=== PATIENT | female | born 1965 ===

== ENCOUNTER 2021-08-28 06:18 | Outpatient (REF) | payer OTHER, SELFPAY ==
[2021-08-28 13:20] LABS: Anion Gap 11 (12-20); Carbon Dioxide 25 mmol/L (22-29); Chloride 109 mmol/L (96-108); Cholesterol 226 mg/dL; Estimated Glomerular Filt Rate > 60; Glucose Fasting 96 mg/dL (60-99); HDL Cholesterol 44 mg/dL; LDL Cholesterol Calculated 168 mg/dl; Potassium 4.3 mmol/L (3.3-5.1); Sodium 141 mmol/L (135-145); Triglycerides 72 mg/dL
[2021-08-28 15:32] LABS: Blood Urea Nitrogen 20 mg/dL (9-16); Calcium 9.8 mg/dL (8.4-10.2)
== END 2021-08-28 06:19 | disposition home or self-care (01) ==
LOC: HO.HMGCLDS 06:18
PROVIDERS: Visit Provider Internal Medicine
DX: E78.5 Hyperlipidemia, unspecified (principal); I10 Essential (primary) hypertension
CPT/HCPCS: 36415; 80048; 80061

== ENCOUNTER 2022-03-06 07:08 | Outpatient (REF) | payer OTHER, SELFPAY ==
[2022-03-06 11:54] LABS: Alanine Aminotransferase 12 U/L (0-31); Anion Gap 15 (12-20); Aspartate Amino Transferase 14 U/L (5-31); Blood Urea Nitrogen 15 mg/dL (9-16); Calcium 9.7 mg/dL (8.4-10.2); Carbon Dioxide 26 mmol/L (22-29); Chloride 107 mmol/L (96-108); Cholesterol 229 mg/dL; Estimated Glomerular Filt Rate > 60; Glucose Fasting 99 mg/dL (60-99); HDL Cholesterol 52 mg/dL; LDL Cholesterol Calculated 162 mg/dl; Potassium 4.6 mmol/L (3.3-5.1); Sodium 143 mmol/L (135-145); Triglycerides 77 mg/dL
[2022-03-06 11:58] LABS: Vitamin D 25-OH Total 21.5 ng/mL (>30)
== END 2022-03-06 07:09 | disposition home or self-care (01) ==
LOC: HO.HMGCLDS 07:08
PROVIDERS: PCP Internal Medicine; Visit Provider Internal Medicine
DX: Z00.00 Encounter for general adult medical examination without abnormal findings (principal); E78.5 Hyperlipidemia, unspecified; Z78.0 Asymptomatic menopausal state
CPT/HCPCS: 36415; 80048; 80061; 82306; 84450; 84460

== ENCOUNTER 2022-09-10 08:31 | Outpatient (REF) | payer OTHER, SELFPAY ==
[2022-09-10 11:46] LABS: Alanine Aminotransferase 14 U/L (0-31); Aspartate Amino Transferase 15 U/L (5-31); Cholesterol 223 mg/dL; HDL Cholesterol 58 mg/dL; LDL Cholesterol Calculated 154 mg/dl; Triglycerides 58 mg/dL
[2022-09-10 12:17] LABS: Vitamin D 25-OH Total 40.8 ng/mL (>30)
== END 2022-09-10 08:32 | disposition home or self-care (01) ==
LOC: HO.HMGCLDS 08:31
PROVIDERS: PCP Internal Medicine; Visit Provider Internal Medicine
DX: E78.5 Hyperlipidemia, unspecified (principal); E55.9 Vitamin D deficiency, unspecified
CPT/HCPCS: 36415; 80061; 82306; 82550; 84450; 84460

== ENCOUNTER 2022-11-25 14:50 | Outpatient (REF) | payer OTHER, SELFPAY | END 2022-11-25 14:51 | disposition home or self-care (01) | LOC: HO.LAB 14:50 | PROVIDERS: Visit Provider Internal Medicine | DX: N39.0 Urinary tract infection, site not specified (principal) | CPT/HCPCS: 87086; 87088; 87186 ==

== ENCOUNTER 2022-12-24 13:40 | Outpatient (AMB) | payer OTHER, SELFPAY ==
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
[2022-12-24 14:21] VITALS: BP 144/80; PULSE 63; BMI 27.9
== END 2022-12-24 14:55 | disposition home or self-care (01) ==
LOC: HO.HMGC 13:40
PROVIDERS: PCP Internal Medicine; Visit Provider Internal Medicine
DX: M54.41 Lumbago with sciatica, right side (principal)
CPT/HCPCS: 99213

== ENCOUNTER 2023-01-22 07:35 | Outpatient (REF) | payer OTHER, SELFPAY ==
[2023-01-22 12:00] LABS: Alanine Aminotransferase 14 U/L (0-31); Aspartate Amino Transferase 14 U/L (5-31); Cholesterol 171 mg/dL; HDL Cholesterol 58 mg/dL; LDL Cholesterol Calculated 99 mg/dl; Triglycerides 73 mg/dL
== END 2023-01-22 07:36 | disposition home or self-care (01) ==
LOC: HO.HMGCLDS 07:35
PROVIDERS: PCP Internal Medicine; Visit Provider Internal Medicine
DX: E78.5 Hyperlipidemia, unspecified (principal)
CPT/HCPCS: 36415; 80061; 82550; 84450; 84460

== ENCOUNTER 2023-02-24 09:00 | Outpatient (AMB) | payer OTHER, SELFPAY ==
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
[2023-02-24 09:07] VITALS: BP 126/78; PULSE 92; O2SAT 100; BMI 27.6
== END 2023-02-24 09:59 | disposition home or self-care (01) ==
PROVIDERS: PCP Internal Medicine; Visit Provider Internal Medicine
DX: M54.41 Lumbago with sciatica, right side (principal); E78.5 Hyperlipidemia, unspecified; I10 Essential (primary) hypertension; M51.36 Other intervertebral disc degeneration, lumbar region
CPT/HCPCS: 99214

== ENCOUNTER 2023-04-22 16:00 | Outpatient (RCR) | payer OTHER, SELFPAY ==
--- NOTE | 2023-01-22 09:49 | MHC.PT.EP ---
[facility] [place] Office [place] Office [place] Office [address] Maurice Sosa [address] [phone] F: [phone] F: [phone] F: [phone] F: [phone] Physical Therapy Plan of Care Date of Evaluation: Date of Surgery: Diagnosis: This is a 57 yo female presenting to skilled PT with a script for lumbago with sciatica, R side. Assessment: This is a 57 yo female presenting to skilled PT with a script for lumbago with sciatica, R side. Patient is here today reporting that she was walking and felt a pull across her back, this occurred about 2 months ago. Since then she reports her pain got a little better but then she tried walking again and it pulled once more (overall pain has been consistent for 2 months). Pain is located at the R side low back, radiates into the lateral hip as well down the posterior aspect of the leg into the thigh (usually with driving). Pain is constant 3-10/10. Pain is described as sharp, stabbing and occasionally tinging into the thigh when driving. She has tried a massage which did not relieve her pain, a heating pad and Tylenol/ibuprofen which provides some relief and past exercises from PT a few years ago (which have helped some). Of note she was also seen for a UTI and was referred for back pain at this visit about a month ago. Assessment reveals pain that ranges from a 3-10/10. Patient demos decreased lumbar and hip ROM, strength of core, back and LE's. She is TTP at lumbar paraspinals, piri, ITB, glut and QL. She is + for MIKEY, sacral squish, anterior rotation on RLE, LLD (long on R), seated SLR and TTP with palpation at PSIS on R. Based on functional limitations, impaired QOL and pain tolerance patient is a good candidate for skilled PT 2x/wk for 4wks. 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 Manual therapy to restore motion and function. Therapeutic exercise to improve strength and flexibility. Neuromuscular re-education for posture and balance. Therapeutic activities to return to functional activities of daily living. Electronically signed by: Rina Newman PT Please sign and return to therapist. Thank you for your referral.
--- NOTE | 2023-04-23 13:30 | MHC.PT.DC ---
[facility] [place] Office [place] Office [place] Office [address] Maurice Sosa [address] [phone] F: [phone] F: [phone] F: [phone] F: [phone] Physical Therapy Discharge Report Diagnosis: This is a 57 yo female presenting to skilled PT with a script for lumbago with sciatica, R side. Date of Surgery: Date of Evaluation: 01/22/23 Date of Discharge: 04/23/23 Treatments to Date: 19 Cancellations to Date: 0 No Shows to Date: Discharge Status: Achieved Goals Improved Function Independent with HEP Discharge Summary: Pt with 2 more appointments and then DC. She has HEP to continue on her own and she was educated on safety with her back pack (came in today with a very heavy bag hung on one shoulder) and safety with hobbies. Good ROM noted, however continues to be weak in hips. HEP distributed and DC'd to I management with education to follow up with PCP as needed. Electronically signed by: Rina Newman PT Please sign and return to therapist. Thank you for your referral.
== END 2023-04-23 13:31 | disposition home or self-care (01) ==
LOC: HO.PTCHIC 16:00
PROVIDERS: PCP Internal Medicine; Visit Provider Internal Medicine
DX: M54.41 Lumbago with sciatica, right side (principal)
CPT/HCPCS: 97110; 97140; 97162

== ENCOUNTER 2023-11-27 13:48 | Outpatient (AMB) | payer OTHER, SELFPAY ==
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
== END 2023-11-27 14:35 | disposition home or self-care (01) ==
PROVIDERS: PCP Internal Medicine; Referring Provider Student in an Organized Health Care Education/Training Program; Visit Provider Neurological Surgery
DX: M54.41 Lumbago with sciatica, right side (principal); G89.29 Other chronic pain; M51.36 Other intervertebral disc degeneration, lumbar region
CPT/HCPCS: 99204

== ENCOUNTER → 2023-11-27 13:48 | Outpatient (BNVA) | payer OTHER, SELFPAY | PROVIDERS: PCP Internal Medicine; Visit Provider Neurological Surgery ==

== ENCOUNTER 2023-12-21 07:49 | Outpatient (REF) | payer OTHER, SELFPAY ==
[2023-12-21 10:19] LABS: MANUAL DIFF FLAG NO
[2023-12-21 10:37] LABS: Basophils Percent Auto 0.2 % (0-2); Eosinophils Absolute Auto 0.2 X10*3/uL (0.0-0.4); Eosinophils Percent Auto 3.9 % (0-4); Hematocrit 45.2 % (37.0-47.0); Hemoglobin 15.2 g/dl (12.0-16.0); Imm Gran Abs Auto 0.02 X10*3/uL (0.00-0.03); Imm Gran Pct Auto 0.4 % (0.0-0.4); Lymphocytes Absolute Auto 1.6 X10*3/uL (1.2-4.9); Lymphocytes Percent Auto 31.6 % (20-40); Mean Corpuscular HGB Conc 33.6 g/dl (31.0-35.0); Mean Corpuscular Hemoglobin 29.6 pg (27.0-33.0); Mean Corpuscular Volume 87.9 fL (80.0-98.0); Monocytes Absolute Auto 0.4 X10*3/uL (0.1-1.2); Monocytes Percent Auto 8.6 % (2-11); Neutrophils Absolute Auto 2.8 x10*3/uL (2.0-8.3); Neutrophils Percent Auto 55.3 % (45-73); Platelet Count 216 X10*3/uL (160-400); Red Blood Count 5.14 X10*6/uL (4.20-5.50); Red Cell Distribution Width 13.1 % (11.0-16.0); White Blood Count 5.1 X10*3/uL (4.8-10.8)
[2023-12-21 11:16] LABS: Alanine Aminotransferase 16 U/L (0-31); Anion Gap 13 (12-20); Aspartate Amino Transferase 17 U/L (5-31); Blood Urea Nitrogen 19 mg/dL (9-16); Calcium 10.2 mg/dL (8.4-10.2); Carbon Dioxide 23 mmol/L (22-29); Chloride 108 mmol/L (96-108); Cholesterol 190 mg/dL (<200); Estimated Glomerular Filt Rate > 60; Glucose Fasting 98 mg/dL (60-99); HDL Cholesterol 57 mg/dL (>40); LDL Cholesterol Calculated 119 mg/dL (<100); Potassium 4.2 mmol/L (3.3-5.1); Sodium 140 mmol/L (135-145); Triglycerides 71 mg/dL (<150)
[2023-12-21 11:17] LABS: Vitamin D 25-OH Total 28.6 ng/mL (>30)
== END 2023-12-21 07:50 | disposition home or self-care (01) ==
LOC: HO.HMGCLDS 07:49
PROVIDERS: PCP Internal Medicine; Visit Provider Internal Medicine
DX: M54.41 Lumbago with sciatica, right side (principal); E78.5 Hyperlipidemia, unspecified; I10 Essential (primary) hypertension
CPT/HCPCS: 36415; 80048; 80061; 82306; 84450; 84460; 85025

== ENCOUNTER 2024-05-25 09:05 | Outpatient (AMB) | payer OTHER, SELFPAY ==
[2024-05-25 09:08] VITALS: BP 142/82; PULSE 92; O2SAT 99; BMI 31.5
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
== END 2024-05-25 10:25 | disposition home or self-care (01) ==
LOC: HO.HMCC 09:06
PROVIDERS: PCP Internal Medicine; Visit Provider Nurse Practitioner Family
DX: Z00.00 Encounter for general adult medical examination without abnormal findings (principal); E78.5 Hyperlipidemia, unspecified; I10 Essential (primary) hypertension; R05.1 Acute cough; R06.2 Wheezing

== ENCOUNTER 2024-05-25 09:05 | Outpatient (REF) | payer OTHER, SELFPAY ==
--- NOTE | ~2024-05-25 | XR_ITS ---
EXAMINATION: XR CHEST CLINICAL INFORMATION: Cough unspecified COMPARISON: None available. TECHNIQUE: 2 views of the chest were obtained. FINDINGS: There is a minor linear infiltrate at the left base suspicious for pneumonia. Right lung clear. Heart and pulmonary vessels normal. XR/XR chest 2V IMPRESSION: Left basilar infiltrate suspicious for pneumonia. Electronically signed by: Ishaan Valenzuela MD 05/25/2024 04:50 PM EST
== END 2024-05-25 09:06 | disposition home or self-care (01) ==
LOC: HO.HMGCX 09:05
PROVIDERS: PCP Internal Medicine; Visit Provider Nurse Practitioner Family
DX: R05.9 Cough, unspecified (principal); R06.2 Wheezing
CPT/HCPCS: 71046; 96127

== ENCOUNTER 2024-06-03 08:11 | Outpatient (AMB) | payer OTHER, SELFPAY ==
[2024-06-03 08:19] VITALS: BP 132/80; PULSE 74; TEMP 36.4; O2SAT 98; BMI 31.5
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
== END 2024-06-03 08:53 | disposition home or self-care (01) ==
PROVIDERS: PCP Internal Medicine; Visit Provider Nurse Practitioner Family
DX: J15.9 Unspecified bacterial pneumonia (principal)

== ENCOUNTER 2024-06-06 08:58 | Outpatient (AMB) | payer OTHER, SELFPAY ==
--- NOTE | 2024-06-06 09:01 | A.SPINEOV_ITS ---
Intake Visit Reasons: Left sided pain Intake Note: Ms. Godinez is here today c/o Left sided back pain. 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 Allergies penicillin V Allergy (Unknown, Verified 06/03/24 08:21) hives, swelling aspirin Adverse Reaction (Unknown, Verified 06/03/24 08:21) severe nose bleeds azithromycin Adverse Reaction (Unknown, Verified 06/03/24 08:21) stomach cramps tizanidine Adverse Reaction (Unknown, Verified 06/03/24 08:21) johnny horses Eggs Adverse Reaction (Unknown, Uncoded 02/24/23 09:45) stomach cramps, deathly ill Assessment & Plan Assessment & Plan (1) Lumbar radiculopathy: Code(s): M54.16 - Radiculopathy, lumbar region Category: Medical Plan Today I saw Kye for a follow-up visit after she called the clinic last week stating that her right-sided lumbar radiculopathy at resolved. To recap she is currently booked for right L4-5 lumbar microdiskectomy. She does still report some right-sided axial back pain, but the shooting severe pain down her right lower extremity has resolved. Of note she recently had a bout of pneumonia and was on antibiotics and a course of steroids. Instead she is having pains down her left lower extremity. When describing her pain she states that it starts in her low back and shoots down her posterior buttocks into the left posterior thigh terminating before the knee. She also has some positional symptoms; she states that when lying down flat in bed with pillows under her legs her left foot feels numb and has a tingling sensation. On examination she has 5/5 strength in her bilateral lower extremities. Her reflexes are 2+ intact in her lower extremities. (-) bilateral straight leg raise. I informed gene that I do not believe we should proceed with her right-sided microdiskectomy surgery given that her clinical presentation and history are most consistent with a disc resorption or degeneration of extruded segment. She was very concerned that we will be cancelling her surgery, and was looking forward to relief of her pain/symptoms. I spent quite some time explaining to the patient that the last thing we want to do as a surgical service is to operate on the patient have them not get better. Instead, I would like her to follow up with Dr. Pennings who initially evaluated her in clinic and stated that she was asymptomatic for left-sided S1 nerve impingement. I feel as though she may either now be symptomatic at this level or is only now realizing it that her severe right-sided shooting radiculopathy has subsided. Although frustrated, the patient understands and agrees to this plan. She will follow up with Dr. Garza in clinic. Bladimir Garza MD,PhD [facility] Coding Level of Care Code Est Pt Level 3 (92002) Diagnoses Lumbar radiculopathy M54.16
== END 2024-06-06 09:28 | disposition home or self-care (01) ==
PROVIDERS: PCP Internal Medicine; Visit Provider Physician Assistant
DX: M54.16 Radiculopathy, lumbar region (principal)
CPT/HCPCS: 99213

== ENCOUNTER 2024-06-22 13:51 | Outpatient (AMB) | payer OTHER, SELFPAY ==
--- NOTE | 2024-06-22 14:52 | HO.SPINEOV ---
Intake Visit Reasons: Discuss sx Intake Note: Ms. 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 Required: No Allergies penicillin V Allergy (Unknown, Verified 06/22/24 14:52) hives, swelling aspirin Adverse Reaction (Unknown, Verified 06/22/24 14:52) severe nose bleeds azithromycin Adverse Reaction (Unknown, Verified 06/22/24 14:52) stomach cramps tizanidine Adverse Reaction (Unknown, Verified 06/22/24 14:52) johnny horses Eggs Adverse Reaction (Unknown, Uncoded 02/24/23 09:45) stomach cramps, deathly ill Assessment & Plan Assessment & Plan (1) Lumbago with sciatica, right side: Code(s): M54.41 - Lumbago with sciatica, right side Category: Medical Qualifiers: Chronicity: chronic Back pain laterality: right Qualified Code(s): M54.41 - Lumbago with sciatica, right side; G89.29 - Other chronic pain Plan Dear colleague, On 06/22/2024, I saw for follow-up Kye Godinez. She was originally scheduled to undergo a lumbar microdiskectomy L4-5, right side on 06/23/2024(tomorrow). However, she developed pneumonia with severe episodes of coughing that produced severe pain on the left side of her back and buttock. The pneumonia has resolved in the meantime but the symptoms persist on top of the original right-sided back pain that radiates into her buttock and sometimes to the outside of her hip. We both agree that it is better to repeat an MRI of the lumbar spine to make sure that no new pathology has developed that can explain the left-sided symptoms. Therefore, I will order a stat MRI of the lumbar spine at [place]. If this does not show any new insights then we will put her back on the schedule for a right L4-5 lumbar microdiskectomy. Apparently, our anesthesia told the patient that she need to see her PCP due to the previous pneumonia. This is pure defensive medicine without any merit. This patient is completely recovered from her pneumonia has no signs of dyspnea. Auscultation today in the office showed clear lungs. Therefore, she will not have to be seen by her primary care physician before surgery again. I spent 15 minutes in his consult today for history physical exam and discussing plan of care. Thank you for allowing me take care of this patient. Octavio Garza MD, PhD Spine Fellowship Trained Neurosurgeon Director, [facility] Orders: Orders MR lumbar spine wo con Today G89.29 - Other chronic pain, M54.16 - Radiculopathy, lumbar region, M54.41 - Lumbago with sciatica, right side Coding Level of Care Code Est Pt Level 2 (10133) Diagnoses Chronic right-sided low back pain with right-sided sciatica M54.41; G89.29 Chronicity: chronic Back pain laterality: right
--- OUTSIDE RECORDS SUMMARY | 2024-06-28 20:00 | XMS_ITS | Continuity of Care Document ---
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 Name Role Phone Janet CAMARGO, Didi Almanza Primary Care Physician Encounter 06/25/24 - 06/26/[address] [address]- us Attending Physician: Not on Staff, Attending MD Referring Physician: Not on Staff, Referring MD Encounter Type: [facility] Allergies, Adverse Reactions, Alerts Substance Criticality Severity Reaction Reaction Severity Status erythromycin VOMITING Active aspirin SEVERE NOSE BLEEDS A ctive penicillins HIVES Active Egg Allergy SEVERE STOMACH PAIN Active Patient Care team information Care Team Personnel Name: Janet CAMARGO , Didi Almanza Position: Reference Physician Member Role: PCP Address: [address] [place], [place] [address] Telecom: Name: Parent Jyotsna VALENTINO Position: [facility] Proteomics Scientist Member Role: Primary Care Nurse Insurance Providers Guarantor name: WANDER CRESPO Health Plan Information #: 1 Payer: [facility] HMO Member Number: NA Policy Number: NA Group Number: NA
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
== END 2024-06-22 15:40 | disposition home or self-care (01) ==
PROVIDERS: PCP Internal Medicine; Visit Provider Neurological Surgery
DX: M54.41 Lumbago with sciatica, right side (principal); G89.29 Other chronic pain
CPT/HCPCS: 99212

== ENCOUNTER 2024-06-29 15:18 | Outpatient (AMB) | payer OTHER, SELFPAY ==
--- NOTE | 2024-06-29 15:22 | A.SPINEOV_ITS ---
Intake Visit Reasons: F/u MRI Intake Note: Mrs. Godinez is here today to F/u on her MRI Non Licensed Nuclear Equipment Operator Required: No Allergies penicillin V Allergy (Unknown, Verified 06/22/24 14:52) hives, swelling aspirin Adverse Reaction (Unknown, Verified 06/22/24 14:52) severe nose bleeds azithromycin Adverse Reaction (Unknown, Verified 06/22/24 14:52) stomach cramps tizanidine Adverse Reaction (Unknown, Verified 06/22/24 14:52) johnny horses Eggs Adverse Reaction (Unknown, Uncoded 02/24/23 09:45) stomach cramps, deathly ill Assessment & Plan Assessment & Plan (1) Lumbar degenerative disc disease: Code(s): M51.36 - Other intervertebral disc degeneration, lumbar region Category: Medical Plan Dear colleague, On 05/2024 saw Kye Godinez in follow-up to review the MRI of the lumbar spine. As you know she suffering from right-sided back and buttock pain but developed additional left-sided sciatica into her buttock after pneumonia with severe coughing. The new MRI indeed shows an aggravation of the L5-S1 area with more disc extrusion compressing the S1 nerve root. There is still compression of the right L5 nerve root and an old L3-4 disc herniation compressing the left L4 nerve root. The patient does have stable numbness over left thigh without pain which is caused by the L3-4 disc herniation. I told the patient that removal of the disc herniation will not improve the numbness. I decided to offer her a right L4-5 microdiskectomy but also a left L5-S1 microdiskectomy to decompress the right L5 nerve root and left S1 nerve. I spent 25 minutes in his consult to review imaging with the patient and her and to discuss the procedure. Octavio Garza MD, PhD Spine Fellowship Trained Neurosurgeon Director, [facility] Coding Level of Care Code Est Pt Level 3 (20340) Diagnoses Lumbar degenerative disc disease M51.36
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
== END 2024-06-29 16:24 | disposition home or self-care (01) ==
PROVIDERS: PCP Internal Medicine; Visit Provider Neurological Surgery
DX: M51.369 Other intervertebral disc degeneration, lumbar region without mention of lumbar back pain or lower extremity pain (principal)
CPT/HCPCS: 99213

== ENCOUNTER → 2024-06-30 09:55 | Day surgery (SDC) | payer OTHER, SELFPAY ==
[2024-06-30] VITALS (13 sets, daily range): BP systolic 116–158; BP diastolic 52–75; PULSE 49–68; RESP 12–18; TEMP 36.1–37.3; O2SAT 96–100; BMI 30.7
--- NOTE | 2024-06-30 11:37 | MHC.SHP ---
Pre-Procedural Eval Section A - 24 Hr Update-Section A only Date of Service: 06/30/24 The patient is an INPATIENT: No Section B - Complete if H&P > 30 days Chief Complaint: Lumbago with sciatica, right side,sciatica Details of Present Illness: Bilateral radiculopathy Allergies: Allergies Allergy/AdvReac Type Severity Reaction Status Date / Time penicillin V Allergy Unknown hives, Verified 06/30/24 10:24 swelling aspirin AdvReac Unknown severe Verified 06/30/24 10:24 nose bleeds azithromycin AdvReac Unknown stomach Verified 06/30/24 10:24 cramps tizanidine AdvReac Unknown johnny Verified 06/30/24 10:24 horses Eggs AdvReac Unknown stomach Uncoded 06/30/24 10:24 cramps, deathly ill Review of Systems Sugical H&P ROS: Negative: Constitution, Cardiovascular, Respiratory, Neurological, Psychiatric, Hem-Onc, Allergic/Immunologic, Gastrointestinal, Genitourinary, Musculoskeletal, Integumentary, Endocrine and Eyes/Ears/Nose/Throat Exam Surgical H&P Exam: Normal: HEENT, Normal: Heart, Normal: Lungs, Normal: Extremities, Normal: Abdomen, Normal: Skin and Normal: Neurological (awake, alert) Plan Diagnosis/Plan: Unchanged I have reviewed the history and physical and performed a pertinent physical examination on my patient. No changes have occurred unless specified. Left L5-S1 microdiscectomy and right L4-5 microdiscetomy Time Spent With Patient Time: Total time managing care of this patient today ____ minutes.
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
[2024-06-30] MEDS: Gabapentin 300 MG CAPSULE PO (12:43)
[2024-06-30] MEDS: methocarbamoL 750 MG TABLET PO (12:43)
--- NOTE | 2024-06-30 14:09 | W.PM.OPN ---
Operative Note Operative Note Date of Service: 06/30/24 Narrative: Preoperative diagnosis: Bilateral lumbar radiculopathy due to disc herniation at L5-S1 and L4-5 Postoperative diagnosis: Same Procedure: Left L5-S1 microdiskectomy; right L4-5 microdiskectomy with microscope Surgeon: Octavio Garza MD, PhD Unmanned Equipment Operator: SHASHANK Francisco This patient is suffering from bilateral sciatica with right-sided back pain radiating to her buttock and left-sided back pain radiating to her buttock. Initially she presented with a right-sided symptoms and she was scheduled to undergo an L4-5 microdiskectomy. She developed pneumonia with significant coughing. She developed left sciatica as well. A new MRI showed indeed a large left L5-S1 disc herniation that is increased compared to the old MRI. We decided to add a left L5 S upon microdiskectomy to the right L4-5 microdiskectomy. The procedure complications were explained. The patient was consented. The patient was brought to the operating room and endotracheally intubated. The patient was turned in a prone position on the Blanco frame. Prepping and draping was done followed by time-out. A mid lumbar incision was made followed by release of the paravertebral muscles on the left side side to expose the L5-S1 interspace. An intraoperative x-rays obtained to confirm the correct level. The microscope was brought in. A left L5 laminotomy was done followed by opening of the flavum ligament. The S1 nerve root was identified and retracted medially to expose the L5-S1 disc space and immediately a fragment of disc herniation presented itself and was removed. I inspected the remainder of the L5-S1 disc and was able to retrieve another large fragment medial from the S1 nerve root.This resulted in an excellent decompression of the S1 nerve root. Then attention was turned to the contralateral side. The muscles were released to expose L4-5 interspace. X-ray confirmed the correct level. A right L4 laminotomy was done followed by opening of the flavum ligament. The L5 nerve root was identified and followed always trajectory. I could palpate a small bulge but no clear herniated disc was found. However, the L5 nerve root was decompressed after I performed a minimal partial facetectomy. Hemostasis was done. The microscope was removed. Marcaine was injected intramuscularly.The incision was closed in two layers. Steri-Strips used to approximate the incision. An op-site were taken there was used to cover the incision. All sponge and needle counts were correct. Patient was extubated and transported in stable condition to recovery room. this procedure was done with the aid of a physician therapy assistant who performed the initial exposure until the microscope was brought in and performed the closure of the incision. Anesthesia: General Blood loss: 20 ml Complications: None Specimen: None Surgical time: 60 minutes Disposition: Discharge home
--- NOTE | 2024-06-30 14:25 | P.DS_ITS ---
DS: Providers Provider Date of Service: 06/30/24 Primary care physician: Didi Gonzales MD DS: Summary Time Attestation Discharge Coordination Time (in mins): 15 Quality: Safe Use of Opioids Does Pt have an Active Cancer Diagnosis on the Problem List?: No Quality: Stroke Does the patient have a stroke diagnosis?: No Physical Exam Vital Signs: Vital Signs: Last Vital Signs Temp 99.2 F 06/30/24 10:50 Pulse 68 06/30/24 10:50 Resp 16 06/30/24 10:50 BP 158/63 H 06/30/24 10:50 Pulse Ox 98 06/30/24 10:50 O2 Del Method Room Air 06/30/24 10:50 BMI result Body Mass Index 30.7 Discharge Plan Discharge Patient Disposition: Home, Self-Care Referrals: Didi Gonzales MD [Primary Care Provider] - 1 Week Discharge Medications: New oxycodone 5 mg tablet 5 mg PO Q6H PRN (Reason: severe pain (scale score 7-10)) Qty: 30 0RF Rx Instructions: Partial Fill upon patient request. Continued losartan 50 mg tablet 50 mg PO DAILY Qty: 90 1RF valacyclovir 1 gram tablet 2,000 mg PO Q12H PRN (Reason: Recurrent cold sore) 1 Days Qty: 4 4RF rosuvastatin 5 mg tablet 5 mg PO 3XW Mirena 20 mcg/24 hours (7 yrs) 52 mg intrauterine device intrauterine Discharge Orders: Discharge Order (Routine); Ordered 06/30/24 Ordered By: Bladimir Magallanes Diet: Advance to usual diet Activity on Discharge: As tolerated Activity Restrictions/Additional Instructions: The After your spinal surgery we ask you to observe the following restrictions/guidelines: Activity: It is normal to feel some discomfort as you increase your activity, but that will improve with time. We ask you avoid heavy lifting or acitivities that cause pain. As a general rule, 8lbs is a safe limit for lifting right after surgery. Walk as much as you feel comfortable but not to exhaustion. You will feel extra tired the first few days after surgery. Stay well hydrated. It is OK to walk up and down stairs You may return to driving when you are off narcotics (such as vicodin, oxycodone, dilaudid, etc), and you are back to normal functional capacity. If you have any concerns please check with office before driving. Return to work is specific to each patient and each surgery, so please speak with your doctor/PA at first follow up. Please bring paperwork such as FMLA at that time if you need it filled out. Medications: We recommend you take 1,000mg Tylenol every 8 hours for the first few weeks after surgery, if you do not have any liver issues and can tolerate this medication. Do not exceed 4,000mg daily. We will give you a short supply of narcotics after surgery (usually one weeks worth). If you need more please call the office but do not use more than prescribed. You will need to give our office 48 hours notice if you need narcotics refilled and we do not fill narcotics on weekends or evenings. If you are on a narcotic, it is a good idea to take a stool softener such as colace or senna to avoid constipation If you take blood thinner such as aspirin, Plavix, Coumadin, Effient, Eliquis etc for conditions such as Afib, DVT, Pulmonary embolus, coronary disease, stents etc please speak with your surgeon about specific details as to when you can resume these medications. You can resume NSAIDs on post op day 1 (eg: Motrin, Naproxen, etc). Follow up: Please call the office, , after surgery to arrange a 3 week follow up for wound check. Wound Care: You may remove your dressing on the first day after surgery. ?You may ?leave open to air. Please do not remove the steri strips underneath. they will fall off on their own in one week. IT IS NORMAL FOR THE WOUND TO OOZE OR BE BLOODY FOR A FEW DAYS AFTER SURGERY. ?IF THIS HAPPENS JUST PLACE NEW DRESSING OVER IT TO AVOID STAINING CLOTHES. You may shower on post op day # 1 We ask that you do not let the water soak the wound. If it does get wet, just towel dry lightly. Please do not scrub your incision or place any type of chemical/ointment on the wound. No tub baths, pools or jacuzzis for one month. If you have any leaking or redness from your wound, or fevers, please call the office. Print Language: [place]se
[2024-06-30] MEDS: HYDROmorphone HCl 0.5 MG/0.5 ML SYRINGE 0.25 MG IVPUSH ×2 (14:48→15:06)
[2024-06-30] MEDS: ondansetron HCL 4 MG/2 ML VIAL IVPUSH (15:14)
== END | disposition home or self-care (01) ==
PROVIDERS: PCP Internal Medicine; Visit Provider Neurological Surgery
PROC: (CPT 63030; principal; 2024-06-30 12:10)
DX: M54.41 Lumbago with sciatica, right side (principal); M51.360 Other intervertebral disc degeneration, lumbar region with discogenic back pain only; Z87.01 Personal history of pneumonia (recurrent); Z88.0 Allergy status to penicillin; Z88.1 Allergy status to other antibiotic agents; Z88.6 Allergy status to analgesic agent; Z88.8 Allergy status to other drugs, medicaments and biological substances; Z91.012 Allergy to eggs
CPT/HCPCS: 63030; 63035; J0131; J1100; J1171; J1885; J2003; J2250; J2405; J2704; J3010; J3371

== ENCOUNTER → 2024-06-30 09:55 | Outpatient (BNV) | payer OTHER, SELFPAY | PROVIDERS: PCP Internal Medicine; Visit Provider Neurological Surgery | DX: M51.16 Intervertebral disc disorders with radiculopathy, lumbar region (principal) | CPT/HCPCS: 63030; 63035; 99499 ==

== ENCOUNTER 2024-07-21 12:51 | Outpatient (AMB) | payer OTHER, SELFPAY ==
--- NOTE | 2024-07-21 12:53 | A.SPINEOV_ITS ---
Intake Visit Reasons: 1st post op Intake Note: Ms. Godinez is here today for her 1st post op. Paperboard Box Maker Required: No Allergies penicillin V Allergy (Unknown, Verified 06/30/24 12:37) hives, swelling, anaphylaxis aspirin Adverse Reaction (Unknown, Verified 06/30/24 10:24) severe nose bleeds azithromycin Adverse Reaction (Unknown, Verified 06/30/24 10:24) stomach cramps tizanidine Adverse Reaction (Unknown, Verified 06/30/24 10:24) johnny horses Eggs Adverse Reaction (Unknown, Uncoded 06/30/24 10:24) stomach cramps, deathly ill Assessment & Plan Assessment & Plan (1) Status post lumbar spine surgery for decompression of spinal cord: Code(s): Z98.890 - Other specified postprocedural states Category: Surgical Plan Procedure: Left L5-S1 microdiskectomy; right L4-5 microdiskectomy Kye comes in today for her 1st postoperative visit after having surgery with Dr. Garza roughly 3 weeks ago. She reports that she is discouraged with the surgery overall. Her left-sided symptoms have completely resolved, but she maintains right-sided low back and right buttocks pain. She denies any radiation further down the leg. She states that this has been significantly debilitating her, causing her to restrict her mobility and ADLs. She previously discussed this with SHASHANK Sweet who placed her on a prednisone Dosepak. She did find this modestly helpful. We discussed how this is likely related to postoperative inflammation secondary to the surgery. I am hopeful that the coming weeks the inflammation we will go down and she will begin to feel better. In the interim I will send her in a prescription and methocarbamol to help with the muscle spasms associated with the pain. She asked several questions regarding the postoperative healing course all of which I answered to the best of my ability. No new neurological deficits. The patient ambulates well and rises from a seated position without difficulty. Posterior incision site appears closed, well healing. I would like to see Kye again in 6 weeks for her 2nd postoperative visit. If she continues to struggle with pain on the right side we may consider sending her to physical therapy. She will call the office in a couple of weeks to let us know she feels able to return to work, at which time we can provide her with a letter. Bladimir Wilsons MD,PhD [facility] Coding Level of Care Code Global (20151) Diagnoses Status post lumbar spine surgery for decompression of spinal cord Z98.890
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
== END 2024-07-21 13:24 | disposition home or self-care (01) ==
PROVIDERS: PCP Internal Medicine; Visit Provider Physician Assistant
DX: Z98.890 Other specified postprocedural states (principal)
CPT/HCPCS: 99024

== ENCOUNTER → 2024-07-21 12:51 | Outpatient (BNVA) | payer OTHER, SELFPAY | PROVIDERS: PCP Internal Medicine; Visit Provider Physician Assistant ==

== ENCOUNTER 2024-09-01 15:05 | Outpatient (AMB) | payer OTHER, SELFPAY ==
--- NOTE | 2024-09-01 15:08 | HO.SPINEOV ---
Intake Visit Reasons: 2nd post op Intake Note: Ms. Godinez is here today for her 2nd post op. Medical Case Worker Required: No Allergies penicillin V Allergy (Unknown, Verified 06/30/24 12:37) hives, swelling, anaphylaxis aspirin Adverse Reaction (Unknown, Verified 06/30/24 10:24) severe nose bleeds azithromycin Adverse Reaction (Unknown, Verified 06/30/24 10:24) stomach cramps tizanidine Adverse Reaction (Unknown, Verified 06/30/24 10:24) johnny horses Eggs Adverse Reaction (Unknown, Uncoded 06/30/24 10:24) stomach cramps, deathly ill Assessment & Plan Assessment & Plan (1) Lumbar radiculopathy: Code(s): M54.16 - Radiculopathy, lumbar region Category: Medical Plan Mrs Godinez is here in followup. This is her second post op visit, s/p L4-5 and L5-s1 diskectomy. She reports being 75% better. She is starting work tomm. Still cont with some right sided low back pain with activities but manageable with tylenol. At this point she has no restrictions. We can see her back on an as needed basis if sxs recur. Anthony Garza MD, PhD [facility] Coding Level of Care Code Global (38192) Diagnoses Lumbar radiculopathy M54.16
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
== END 2024-09-01 15:27 | disposition home or self-care (01) ==
LOC: HO.HNS 15:56
PROVIDERS: PCP Internal Medicine; Visit Provider Physician Assistant
DX: M54.16 Radiculopathy, lumbar region (principal)
CPT/HCPCS: 99024

== ENCOUNTER 2025-02-10 08:23 | Outpatient (REF) | payer OTHER, SELFPAY ==
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
[2025-02-10 10:16] LABS: MANUAL DIFF FLAG NO
[2025-02-10 10:19] LABS: Hematocrit 42.7 % (37.0-47.0); Hemoglobin 14.4 g/dl (12.0-16.0); Imm Gran Abs Auto 0.01 X10*3/uL (0.00-0.03); Imm Gran Pct Auto 0.2 % (0.0-0.4); Lymphocytes Absolute Auto 1.6 X10*3/uL (1.2-4.9); Mean Corpuscular HGB Conc 33.7 g/dl (31.0-35.0); Mean Corpuscular Hemoglobin 29.0 pg (27.0-33.0); Mean Corpuscular Volume 85.9 fL (80.0-98.0); NRBC Abs Auto 0.000 X10*3/uL (0.0-0.012); NRBC Pct Auto 0.0 /100WBC (0.0-0.2); Platelet Count 219 X10*3/uL (160-400); Red Blood Count 4.97 X10*6/uL (4.20-5.50); White Blood Count 4.8 X10*3/uL (4.8-10.8)
[2025-02-10 11:00] LABS: Alanine Aminotransferase 20 U/L (0-31); Anion Gap 12 (12-20); Aspartate Amino Transferase 27 U/L (5-31); Blood Urea Nitrogen 16 mg/dL (9-16); Calcium 9.4 mg/dL (8.4-10.2); Carbon Dioxide 23 mmol/L (22-29); Chloride 111 mmol/L (96-108); Cholesterol 188 mg/dL (<200); Estimated Glomerular Filt Rate > 60; HDL Cholesterol 54 mg/dL (>40); Potassium 4.3 mmol/L (3.3-5.1); Sodium 142 mmol/L (135-145); Triglycerides 87 mg/dL (<150)
== END 2025-02-10 08:24 | disposition home or self-care (01) ==
LOC: HO.HMGCLDS 08:23
PROVIDERS: PCP Internal Medicine; Visit Provider Internal Medicine
DX: L81.7 Pigmented purpuric dermatosis (principal); E78.5 Hyperlipidemia, unspecified; I10 Essential (primary) hypertension; Z86.39 Personal history of other endocrine, nutritional and metabolic disease; Z87.01 Personal history of pneumonia (recurrent)
CPT/HCPCS: 36415; 80048; 80061; 82306; 84450; 84460; 85025

== ENCOUNTER 2025-02-14 07:58 | Outpatient (AMB) | payer OTHER, SELFPAY ==
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
[2025-02-14 08:16] VITALS: BP 122/80; PULSE 66; O2SAT 98; BMI 33.2
== END 2025-02-14 09:02 | disposition home or self-care (01) ==
LOC: HO.HMCC 07:59
PROVIDERS: PCP Internal Medicine; Visit Provider Internal Medicine
DX: Z00.01 Encounter for general adult medical examination with abnormal findings (principal); L98.9 Disorder of the skin and subcutaneous tissue, unspecified; M25.561 Pain in right knee; M25.461 Effusion, right knee; E66.811 Obesity, class 1; I10 Essential (primary) hypertension; E78.5 Hyperlipidemia, unspecified; E55.9 Vitamin D deficiency, unspecified

== ENCOUNTER → 2025-02-14 07:58 | Outpatient (BNVA) | payer OTHER, SELFPAY | PROVIDERS: PCP Internal Medicine; Visit Provider Internal Medicine | DX: Z00.01 Encounter for general adult medical examination with abnormal findings (principal); L98.9 Disorder of the skin and subcutaneous tissue, unspecified; M25.561 Pain in right knee; M25.461 Effusion, right knee; E66.811 Obesity, class 1; Z68.33 Body mass index [BMI] 33.0-33.9, adult; I10 Essential (primary) hypertension; E78.5 Hyperlipidemia, unspecified; E55.9 Vitamin D deficiency, unspecified; Z13.31 Encounter for screening for depression; Z13.39 Encounter for screening examination for other mental health and behavioral disorders | CPT/HCPCS: 96127 ==

== ENCOUNTER 2025-03-22 14:46 | Outpatient (AMB) | payer OTHER, SELFPAY ==
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
[2025-03-22 15:18] VITALS: BMI 33.2
== END 2025-03-22 15:49 | disposition home or self-care (01) ==
LOC: HO.HOS 14:47
PROVIDERS: PCP Internal Medicine; Visit Provider Physician Assistant
DX: M17.11 Unilateral primary osteoarthritis, right knee (principal)
CPT/HCPCS: 99203; G2211

== ENCOUNTER → 2025-03-22 15:08 | Outpatient (BNV) | payer OTHER, SELFPAY | PROVIDERS: Visit Provider Radiology Diagnostic Radiology | DX: M17.11 Unilateral primary osteoarthritis, right knee (principal) | CPT/HCPCS: 73562 ==

== ENCOUNTER 2025-03-22 15:26 | Outpatient (REF) | payer OTHER, SELFPAY ==
--- NOTE | ~2025-03-22 | XR_ITS ---
EXAMINATION: XR KNEE, RIGHT CLINICAL INFORMATION: M17.11 - Unilateral primary osteoarthritis, right knee COMPARISON: None available. TECHNIQUE: AP standing bilateral, sunrise, and lateral views of the right knee. FINDINGS: There is mild narrowing of the medial greater than lateral joint spaces. Patellofemoral joint spaces preserved. There is no joint effusion. There are small tri-compartment marginal osteophytes and intercondylar tubercles are peaked. Left knee demonstrates focal calcification in the region of the proximal MCL likely from a remote sprain. XR/XR knee RT 3V IMPRESSION: Mild right knee osteoarthritis. Electronically signed by: Kyler Sumner MD 03/22/2025 03:39 PM EDT
== END 2025-03-22 15:27 | disposition home or self-care (01) ==
LOC: HO.HOSX 15:26
PROVIDERS: Visit Provider Physician Assistant
DX: M17.11 Unilateral primary osteoarthritis, right knee (principal); I10 Essential (primary) hypertension; Z79.899 Other long term (current) drug therapy
CPT/HCPCS: 73562